=== PATIENT | male | born 1970 | race Caucasian/White ===

== ENCOUNTER 2024-09-01 09:43 | Emergency (ER) | payer OTHER, SELFPAY ==
[2024-09-01 10:13] VITALS: BP 164/102; PULSE 59; RESP 16; TEMP 36.7; O2SAT 98; BMI 29.5
--- NOTE | 2024-09-01 11:13 | ED.EYEPROB ---
HPI - Eye Problem <DEEPTHI Landin - Last Filed: 09/01/24 11:36> General Chief complaint: Eye Problems Stated complaint: swollen right eye Time Seen by Provider: 09/01/24 11:04 History of Present Illness HPI Narrative: 54-year-old male, never smoker and eyeglass wearer, presents to the emergency department with right upper eyelid swelling x2 days. Patient denies any trauma to that area or suspicion for foreign body. Patient has been applying warm compresses 2 to 3 times a day. Patient denies any visual changes. Related Data Previous Rx's Medication Instructions Recorded erythromycin 5 mg/gram (0.5 %) eye 0.5 inch EYE-RIGHT QID #3.5 grams 09/01/24 ointment Allergies Allergy/AdvReac Type Severity Reaction Status Date / Time No Known Drug Allergies Allergy Verified 09/01/24 10:13 Review of Systems <DEEPTHI Landin - Last Filed: 09/01/24 11:36> Review of Systems Narrative: Narrative: See HPI. GENERAL: Denies chills, fatigue, fever, sweats. HEENT: Denies sinus pain, ear pain, sore throat, difficulty swallowing, dizziness. Endorses right upper eyelid swelling. RESPIRATORY: Denies dyspnea, cough, wheezing, sputum. CARDIOVASCULAR: Denies chest pain, palpitations, edema. GASTROINTESTINAL: Denies nausea, vomiting, abdominal pain, diarrhea, constipation. MSK: Denies weakness, joint pain, or bony pain. SKIN: Denies rash, skin lesions, or pruritis. NEUROLOGIC: Denies weakness, dizziness, headache, numbness, confusion. Patient History <DEEPTHI Landin - Last Filed: 09/01/24 11:36> Social History Smoking Status: Never smoker Smoking Status: Never smoker Exam <DEEPTHI Landin - Last Filed: 09/01/24 11:36> Narrative Exam Narrative: Exam Narrative: GENERAL: This is a well-nourished, well-developed patient, in no acute distress HEAD: Atraumatic. Normocephalic. ENT: Nose without bleeding, purulent drainage. Airway patent. Right upper eyelid swollen with chalazion noted to lateral aspect. Positive drainage. RESPIRATORY: Respiratory rate and effort are normal. MSK: Moves all extremities. Normal range of motion, no clubbing or edema. Neurovascularly intact. NEURO: A&O x 3. SKIN: Warm, dry, no rashes or lesions noted. Initial Vital Signs Initial Vital Signs: Vital Signs Temperature 98.0 F 09/01/24 10:13 Pulse Rate 59 L 09/01/24 10:13 Respiratory Rate 16 09/01/24 10:13 Blood Pressure 164/102 H 09/01/24 10:13 Pulse Oximetry 98 09/01/24 10:13 Oxygen Delivery Method Room Air 09/01/24 10:13 Reviewed <Rosetta Ledezma DO - Last Filed: 09/01/24 18:29> Initial Vital Signs Initial Vital Signs: Vital Signs Temperature 98.0 F 09/01/24 10:13 Pulse Rate 59 L 09/01/24 10:13 Respiratory Rate 16 09/01/24 10:13 Blood Pressure 164/102 H 09/01/24 10:13 Pulse Oximetry 98 09/01/24 10:13 Oxygen Delivery Method Room Air 09/01/24 10:13 Course <DEEPTHI Landin - Last Filed: 09/01/24 11:36> Vital Signs Vital signs: Vital Signs - 8 hr 09/01/24 12:07 Pulse Rate 63 Respiratory Rate 14 Blood Pressure 161/105 H Pulse Oximetry 99 Oxygen Delivery Method Room Air <Rosetta Ledezma DO - Last Filed: 09/01/24 18:29> Vital Signs Vital signs: Vital Signs - 8 hr 09/01/24 12:07 Pulse Rate 63 Respiratory Rate 14 Blood Pressure 161/105 H Pulse Oximetry 99 Oxygen Delivery Method Room Air MDM - Eye Problem <DEEPTHI Landin - Last Filed: 09/01/24 11:36> Differential Diagnosis Differential diagnosis: Likely conjunctivitis and other (Chalazion, hordeolum) MDM Narrative Medical decision making narrative: 54-year-old male with complaints of right upper eyelid swelling. Clinical findings were suggestive of a chalazion. Recommended supportive care that includes warm compresses to the affected site 6+ times per day. Due to upper eyelid swelling and discharge, concerned there may be a component of conjunctivitis and will therefore prescribe erythromycin ointment that may also soften the chalazion for drainage. Discussed plan of care and return precautions with patient, who verbalized understanding and was agreeable with course of action. Discharge Plan Departure Patient Disposition: Home Clinical Impression: Chalazion of right upper eyelid Instructions: DI for Chalazion Activity Restrictions/Additional Instructions: *You have been diagnosed with a chalazion (or stye) of your right upper eyelid. This can be treated with supportive care that includes warm compresses to the affected site 6+ times per. This should facilitate drainage. Since your upper eyelid is swollen, there may be components of a conjunctivitis and will therefore prescribe erythromycin ointment to be used 4 to 5 times a day until symptoms resolve. Please follow-up with your machine setter/marriage and family counselor as needed. *What to do: *Please continue to take your regular medications as directed. [ x] New medication prescriptions sent to your pharmacy: [[facility]] [ ] New medication written as a paper prescription [ ] No new medications given *Please follow up with your primary care provider in 2-3 days, call for an appointment. Let them know you were seen in the Emergency Department and that we ask that you be seen in follow up. We will electronically transmit a record of today's note if your PCP is in our system *If you do not have a primary care provider please contact the [facility] Resource line at [phone]. They will ask some questions about your medical history and help get you set up with a doctor in the community. ? Return to ER if you should have any new, worsening or concerning symptoms, such as worsening pain, severe headache, confusion, chest pain, difficulty breathing, fever greater than 101 F, shaking chills, persistent vomiting to the point that you cannot drink fluids, or other new or worsening symptoms. Prescriptions: New erythromycin 5 mg/gram (0.5 %) ointment 0.5 inch EYE-RIGHT QID Qty: 3.5 0RF Stand Alone Forms: Patient Portal/API/Survey ED Sign-out <Rosetta Ledezma DO - Last Filed: 09/01/24 18:29> Cosign ED Attending Kaiature Attestation: I was immediately available in the department for consultation.
[2024-09-01 12:07] VITALS: BP 161/105; PULSE 63; RESP 14; O2SAT 99
== END 2024-09-01 12:09 | disposition home or self-care (01) ==
PROVIDERS: Emergency Provider Registered Nurse
DX: H00.11 Chalazion right upper eyelid (principal)
CPT/HCPCS: 99281